=== PATIENT | male | born 1985 | race Caucasian/White ===

== ENCOUNTER 2016-12-27 02:54 | Emergency (ER) | payer SELFPAY ==
[~2016-12-27] VITALS: Ht 185.4 cm; Wt 85.0 kg
[~2016-12-27 02:54] MED LIST: MOME17I EACH NARE
[2016-12-27] MEDS ORDERED: TEGR200T PO (02:56)
[2016-12-27 02:57] VITALS: BP 136/60; PULSE 88; RESP 20; TEMP 98; O2SAT 98
[2016-12-27] MEDS ORDERED: KETOROLAC TROMETHAMINE 30 MG/ML (IVP) VIAL IV PUSH ONE (03:15)
--- NOTE | 2016-12-27 03:24 | PD ---
HPI Chief Complaint: Seizure Time Seen by Provider: 02:57 Travel History International Travel<30 days: No Contact w/Intl Traveler<30days: No Traveled to known affect area: No History of Present Illness HPI 31-year-old male was brought in the EMS for seizure. Patient was reported had 3 seizure episodes at home this evening. Patient also complained of sharp pain on the left anterior chest wall this evening also. Patient states that the pain is sharp stabbing pain and worse with deep breathing. Patient states that the pain localized to left into chest wall area. Patient denies any pain radiation. Patient also complained of low back pain. Patient has history chronic low back pain. Patient states that he has history of seizure and was seen by physician outside of the area. Patient states that he was on Tegretol . Patient denies any recent alcohol or drug abuse. Patient has history of panic attack and was on Xanax in the past. In reviewing medical record patient was on gabapentin, Percocet, Keppra, Prilosec and Xanax. Patient states that he has not been taking Tegretol recently. PFSH Past Medical History Anxiety: Yes Immunizations Current: Yes Seizures: Yes Tetanus Vaccination: Unknown Influenza Vaccination: No Social History Alcohol Use: No Tobacco Use: Yes (ORAL TOBACCO) Substance Use: Yes (xanax, weed) Allergies-Medications (Allergen,Severity, Reaction): Coded Allergies: Hydrocodone (Verified Allergy, Unknown, 12/27/16) Reported Meds & Prescriptions Reported Meds & Active Scripts Active Reported Tegretol (Carbamazepine) 200 Mg Tab 200 Mg PO BID Review of Systems General / Constitutional: No: Fever Eyes: No: Visual changes HENT: No: Headaches Cardiovascular: Positive: Chest Pain or Discomfort Respiratory: No: Shortness of Breath Gastrointestinal: No: Abdominal Pain Genitourinary: No: Dysuria Musculoskeletal: No: Pain Skin: No Rash Neurologic: No: Weakness Psychiatric: No: Depression Endocrine: No: Polydipsia Hematologic/Lymphatic: No: Easy Bruising Physical Exam Narrative GENERAL: Well-nourished, well-developed patient. SKIN: Warm and dry. HEAD: Normocephalic. EYES: No scleral icterus. No injection or drainage. NECK: Supple, trachea midline. No JVD or lymphadenopathy. CARDIOVASCULAR: Regular rate and rhythm without murmurs, gallops, or rubs. RESPIRATORY: Breath sounds equal bilaterally. No accessory muscle use. GASTROINTESTINAL: Abdomen soft, non-tender, nondistended. MUSCULOSKELETAL: No cyanosis, or edema. BACK: Nontender without obvious deformity. No CVA tenderness. Neurologic exam normal. Data Data Last Documented VS Vital Signs Date Time Temp Pulse Resp B/P Pulse Ox O2 Delivery O2 Flow Rate FiO2 12/27/16 04:00 84 18 123/59 98 Room Air 12/27/16 02:57 98.0 Orders Electrocardiogram (12/27/16 03:10) Complete Blood Count With Diff (12/27/16 03:10) Comprehensive Metabolic Panel (12/27/16 03:10) Creatine Kinase (Cpk) (12/27/16 03:10) Troponin I (12/27/16 03:10) Carbamazepine (Tegretol) (12/27/16 03:10) Iv Access Insert/Monitor (12/27/16 03:10) Ecg Monitoring (12/27/16 03:10) Oximetry (12/27/16 03:10) Drug Screen, Random Urine (12/27/16 03:10) Ketorolac Inj (Toradol Inj) (12/27/16 03:15) Labs Laboratory Tests Test 12/27/16 03:20 White Blood Count 9.8 TH/MM3 Red Blood Count 4.44 MIL/MM3 Hemoglobin 14.0 GM/DL Hematocrit 41.1 % Mean Corpuscular Volume 92.5 FL Mean Corpuscular Hemoglobin 31.6 PG Mean Corpuscular Hemoglobin 34.2 % Concent Red Cell Distribution Width 13.0 % Platelet Count 247 TH/MM3 Mean Platelet Volume 8.5 FL Neutrophils (%) (Auto) 63.5 % Lymphocytes (%) (Auto) 24.2 % Monocytes (%) (Auto) 6.7 % Eosinophils (%) (Auto) 5.1 % Basophils (%) (Auto) 0.5 % Neutrophils # (Auto) 6.2 TH/MM3 Lymphocytes # (Auto) 2.4 TH/MM3 Monocytes # (Auto) 0.7 TH/MM3 Eosinophils # (Auto) 0.5 TH/MM3 Basophils # (Auto) 0.1 TH/MM3 CBC Comment DIFF FINAL Differential Comment Sodium Level 142 MEQ/L Potassium Level 3.7 MEQ/L Chloride Level 106 MEQ/L Carbon Dioxide Level 28.1 MEQ/L Anion Gap 8 MEQ/L Blood Urea Nitrogen 14 MG/DL Creatinine 0.92 MG/DL Estimat Glomerular Filtration 95 ML/MIN Rate Random Glucose 101 MG/DL Calcium Level 9.0 MG/DL Total Bilirubin 0.2 MG/DL Aspartate Amino Transf 35 U/L (AST/SGOT) Alanine Aminotransferase 75 U/L (ALT/SGPT) Alkaline Phosphatase 101 U/L Total Creatine Kinase 100 U/L Troponin I LESS THAN 0.02 NG/ML Total Protein 7.3 GM/DL Albumin 3.6 GM/DL Carbamazepine (Tegretol) Level LESS THAN 0.5 MCG/ML MDM Medical Decision Making Medical Screen Exam Complete: Yes Emergency Medical Condition: Yes Interpretation(s) 4 43 AM. CBC within normal limit. CMP within normal limit. Cardiac enzymes are normal., Carbamazepine level less than 0.5. Differential Diagnosis Differential diagnosis including seizure versus pseudoseizure, drug withdrawal, electrolyte imbalance, substance abuse, chest wall pain, angina, MD, PE, pneumothorax. Narrative Course 31-year-old male was brought in by EMS for possible seizures at home. Patient states that he has history of seizure and has not been taking Tegretol. In reviewing medical record patient was on Xanax, Percocet, gabapentin, Keppra and Prozac. Patient was given Toradol 30 mg IV today. Diagnosis Primary Impression: Seizure Additional Impression: Atypical chest pain Patient Instructions: General Instructions Additional Instructions: Advised patient to follow up with local physician for status seizure history. Advil Tylenol for pain. Follow-up with personal physician. Return if worse. Med/Other Pt SpecificInfo: No Change to Meds Disposition: 01 DISCHARGE HOME Condition: Stable Prince Trotter MD Dec 27, 2016 03:24 Prince Trotter MD Dec 27, 2016 03:24
[2016-12-27 03:40] LABS: AUTOMATED NEUTROPHIL # 6.2 TH/MM3 (1.8-7.7); BASOPHIL # 0.1 TH/MM3 (0-0.2); BASOPHIL % 0.5 % (0.0-2.0); EOSINOPHIL # 0.5 TH/MM3 (0-0.4); EOSINOPHIL % 5.1 % (0.0-4.0); HEMATOCRIT 41.1 % (39.0-51.0); HEMO FLAGS DIFF FINAL; LYMPH % 24.2 % (9.0-44.0); LYMPHOCYTE # 2.4 TH/MM3 (1.0-4.8); MEAN CELL VOLUME 92.5 FL (80.0-100.0); MEAN CORPUSCULAR HEMOGLOBIN 31.6 PG (27.0-34.0); MEAN CORPUSCULAR HGB CONC 34.2 % (32.0-36.0); MONO % 6.7 % (0.0-8.0); NEUT % 63.5 % (16.0-70.0); PLATELET COUNT 247 TH/MM3 (150-450); RED BLOOD COUNT 4.44 MIL/MM3 (4.50-5.90); WHITE BLOOD COUNT 9.8 TH/MM3 (4.0-11.0)
[2016-12-27 03:52] LABS: ALKALINE PHOSPHATASE 101 U/L (45-117); TOTAL BILIRUBIN ADULT 0.2 MG/DL (0.2-1.0)
[2016-12-27 04:00] VITALS: BP 123/59; PULSE 84; RESP 18; O2SAT 98
[2016-12-27 04:07] LABS: CREATINE KINASE 100 U/L (39-308)
[2016-12-27 04:08] LABS: ALT (GPT) 75 U/L (12-78); ANION GAP 8 MEQ/L (5-15); AST (GOT) 35 U/L (15-37); BICARBONATE 28.1 MEQ/L (21.0-32.0); BLOOD UREA NITROGEN 14 MG/DL (7-18); CHLORIDE 106 MEQ/L (98-107); GLOMERULAR FILTRATION RATE 95 ML/MIN (>89); POTASSIUM 3.7 MEQ/L (3.5-5.1); SODIUM (NA) 142 MEQ/L (136-145)
--- NOTE | 2016-12-28 11:04 | EKG ---
Date Performed: 12/27/2016 Time Performed: 03:26:48 PTAGE: 31 years EKG: Sinus rhythm NONSPECIFIC T-WAVE ABNORMALITY BORDERLINE ECG NO PREVIOUS TRACING DOCTOR: Imelda Vale Interpretating Date/Time 12/28/2016 11:02:32
== END 2016-12-27 04:53 | disposition home or self-care (01) ==
LOC: NEPE 02:54
DX: R56.9 Unspecified convulsions (principal); R07.89 Other chest pain
CPT/HCPCS: 80053; 80156; 82550; 84484; 85025; 93005; 96374; 99284; J1885

== ENCOUNTER 2017-02-18 05:25 | Emergency (ER) | payer SELFPAY ==
[~2017-02-18] VITALS: Ht 185.4 cm; Wt 100.0 kg
[~2017-02-18 05:25] MED LIST changes: -MOME17I EACH NARE; +TEGR200T PO
[2017-02-18] MEDS ORDERED: ALPR.5 PO (05:38)
[2017-02-18] MEDS ORDERED: OXYC30TA PO (05:38)
[2017-02-18 05:39] VITALS: BP 154/85; PULSE 79; RESP 18; TEMP 98.4; O2SAT 98
[2017-02-18 06:35] LABS: AUTOMATED NEUTROPHIL # 3.9 TH/MM3 (1.8-7.7); BASOPHIL % 0.5 % (0.0-2.0); EOSINOPHIL # 0.2 TH/MM3 (0-0.4); EOSINOPHIL % 2.4 % (0.0-4.0); HEMATOCRIT 40.3 % (39.0-51.0); HEMO FLAGS DIFF FINAL; LYMPHOCYTE # 1.7 TH/MM3 (1.0-4.8); MEAN CELL VOLUME 89.7 FL (80.0-100.0); MEAN CORPUSCULAR HEMOGLOBIN 31.3 PG (27.0-34.0); MEAN CORPUSCULAR HGB CONC 34.9 % (32.0-36.0); MONO % 8.2 % (0.0-8.0); NEUT % 61.9 % (16.0-70.0); PLATELET COUNT 238 TH/MM3 (150-450); RED BLOOD COUNT 4.49 MIL/MM3 (4.50-5.90); RED CELL DISTRIBUTION WIDTH 13.2 % (11.6-17.2); WHITE BLOOD COUNT 6.3 TH/MM3 (4.0-11.0)
--- NOTE | 2017-02-18 06:47 | RADRPT ---
EXAM DATE/TIME: 02/18/2017 06:19 [facility] COMPARISON: No previous studies available for comparison. INDICATIONS : Fall after having seizure. RADIATION DOSE: 36.50 CTDIvol (mGy) MEDICAL HISTORY : Seizures. SURGICAL HISTORY : None. ENCOUNTER: Initial ACUITY: 1 day PAIN SCALE: 3/10 LOCATION: cranial TECHNIQUE: Multiple contiguous axial images were obtained of the head. Using automated exposure control and adj ustment of the mA and/or kV according to patient size, radiation dose was kept as low as reasonably a chievable to obtain optimal diagnostic quality images. FINDINGS: There is mild motion artifact degrading the images. CEREBRUM: The ventricles are normal for age. No evidence of midline shift, mass lesion, hemorrhage or acute in farction. No extra-axial fluid collections are seen. POSTERIOR FOSSA: The cerebellum and brainstem are intact. The 4th ventricle is midline. The cerebellopontine angle i s unremarkable. EXTRACRANIAL: The visualized portion of the orbits is intact. SKULL: The calvaria is intact. No evidence of skull fracture. CONCLUSION: Negative trauma with noncontrast CT. Rodriguez Mcconnell MD on February 18, 2017 at 6:44 Board Certified Radiologist. This report was verified electronically.
[2017-02-18 06:51] LABS: ALKALINE PHOSPHATASE 105 U/L (45-117); ALT (GPT) 73 U/L (12-78); TOTAL BILIRUBIN ADULT 0.9 MG/DL (0.2-1.0)
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
[2017-02-18] MEDS ORDERED: LORazepam 1 MG TAB PO PRN (07:00)
[2017-02-18] MEDS ORDERED: LORazepam 2 MG/ML VIAL IV PUSH PRN ×4 (07:00)
[2017-02-18] MEDS ORDERED: FLUMAZENIL 0.5 MG/5 ML VIAL IV PUSH PRN (07:00)
[2017-02-18] MEDS ORDERED: ONDANSETRON HCL 4 MG/2 ML VIAL IV PUSH PRN (07:00)
[2017-02-18 07:02] LABS: ANION GAP 11 MEQ/L (5-15); AST (GOT) 54 U/L (15-37); BICARBONATE 24.3 MEQ/L (21.0-32.0); BLOOD UREA NITROGEN 8 MG/DL (7-18); CHLORIDE 106 MEQ/L (98-107); GLOMERULAR FILTRATION RATE 81 ML/MIN (>89); SODIUM (NA) 141 MEQ/L (136-145)
[2017-02-18] MEDS: LORazepam 2 MG TAB PO PRN (07:02)
--- NOTE | 2017-02-18 07:03 | PD ---
Physical Exam Date Seen by Provider: February 18, 2017 Time Seen by Provider: 07:02 Narrative The patient is a 31-year-old male who is originally seen by the previous physician, Dr. Alejo. Please refer to initial history, physical, diagnostic evaluation, treatment modality plan. The patient is a John act, patient was signed out with CT of the brain and cervical spine as well as laboratory evaluation pending. Data Data Last Documented VS Vital Signs Date Time Temp Pulse Resp B/P Pulse Ox O2 Delivery O2 Flow Rate FiO2 02/18/17 05:39 98.4 79 18 154/85 98 Orders Complete Blood Count With Diff (02/18/17 05:58) Comprehensive Metabolic Panel (02/18/17 05:58) Thyroid Stimulating Hormone (02/18/17 05:58) Urinalysis - C+S If Indicated (02/18/17 05:58) Iv Access Insert/Monitor (02/18/17 05:58) Ecg Monitoring (02/18/17 05:58) Valproic Acid (Depakene) (02/18/17 05:58) Psych Screen (02/18/17 05:58) Drug Screen, Random Urine (02/18/17 05:58) Alcohol (Ethanol) (02/18/17 05:58) Salicylates (Aspirin) (02/18/17 05:58) Tylenol (Acetaminophen) (02/18/17 05:58) Ct Brain W/O Iv Contrast(Rout) (02/18/17 ) Ct Cerv Spine W/O Contrast (02/18/17 ) Alcohol Withdrawal Asmt-Ciwa ONCE (02/18/17 06:51) Ondansetron Inj (Zofran Inj) (02/18/17 07:00) Flumazenil Inj (Romazicon Inj) (02/18/17 07:00) Lorazepam (Ativan) (02/18/17 07:00) Lorazepam Inj (Ativan Inj) (02/18/17 07:00) Lorazepam (Ativan) (02/18/17 07:00) Lorazepam Inj (Ativan Inj) (02/18/17 07:00) Lorazepam Inj (Ativan Inj) (02/18/17 07:00) Lorazepam Inj (Ativan Inj) (02/18/17 07:00) Lorazepam Inj (Ativan Inj) (02/18/17 07:15) Labs Laboratory Tests Test 02/18/17 06:00 White Blood Count 6.3 TH/MM3 Red Blood Count 4.49 MIL/MM3 Hemoglobin 14.1 GM/DL Hematocrit 40.3 % Mean Corpuscular Volume 89.7 FL Mean Corpuscular Hemoglobin 31.3 PG Mean Corpuscular Hemoglobin 34.9 % Concent Red Cell Distribution Width 13.2 % Platelet Count 238 TH/MM3 Mean Platelet Volume 8.7 FL Neutrophils (%) (Auto) 61.9 % Lymphocytes (%) (Auto) 27.0 % Monocytes (%) (Auto) 8.2 % Eosinophils (%) (Auto) 2.4 % Basophils (%) (Auto) 0.5 % Neutrophils # (Auto) 3.9 TH/MM3 Lymphocytes # (Auto) 1.7 TH/MM3 Monocytes # (Auto) 0.5 TH/MM3 Eosinophils # (Auto) 0.2 TH/MM3 Basophils # (Auto) 0.0 TH/MM3 CBC Comment DIFF FINAL Differential Comment Sodium Level 141 MEQ/L Potassium Level 3.8 MEQ/L Chloride Level 106 MEQ/L Carbon Dioxide Level 24.3 MEQ/L Anion Gap 11 MEQ/L Blood Urea Nitrogen 8 MG/DL Creatinine 1.05 MG/DL Estimat Glomerular Filtration 81 ML/MIN Rate Random Glucose 94 MG/DL Calcium Level 10.0 MG/DL Total Bilirubin 0.9 MG/DL Aspartate Amino Transf 54 U/L (AST/SGOT) Alanine Aminotransferase 73 U/L (ALT/SGPT) Alkaline Phosphatase 105 U/L Total Protein 8.8 GM/DL Albumin 4.4 GM/DL Thyroid Stimulating Hormone 1.210 uIU/ML 3rd Gen Salicylates Level 3.5 MG/DL Acetaminophen Level LESS THAN 2.0 MCG/ML Valproic Acid (Depakene) Level LESS THAN 3 MCG/ML Ethyl Alcohol Level LESS THAN 3 MG/DL [facility] Medical Record Reviewed: Yes Supervised Visit with DVEON: No Interpretation(s) Laboratory Tests Test 02/18/17 06:00 White Blood Count 6.3 TH/MM3 Red Blood Count 4.49 MIL/MM3 Hemoglobin 14.1 GM/DL Hematocrit 40.3 % Mean Corpuscular Volume 89.7 FL Mean Corpuscular Hemoglobin 31.3 PG Mean Corpuscular Hemoglobin 34.9 % Concent Red Cell Distribution Width 13.2 % Platelet Count 238 TH/MM3 Mean Platelet Volume 8.7 FL Neutrophils (%) (Auto) 61.9 % Lymphocytes (%) (Auto) 27.0 % Monocytes (%) (Auto) 8.2 % Eosinophils (%) (Auto) 2.4 % Basophils (%) (Auto) 0.5 % Neutrophils # (Auto) 3.9 TH/MM3 Lymphocytes # (Auto) 1.7 TH/MM3 Monocytes # (Auto) 0.5 TH/MM3 Eosinophils # (Auto) 0.2 TH/MM3 Basophils # (Auto) 0.0 TH/MM3 CBC Comment DIFF FINAL Differential Comment Sodium Level 141 MEQ/L Potassium Level 3.8 MEQ/L Chloride Level 106 MEQ/L Carbon Dioxide Level 24.3 MEQ/L Anion Gap 11 MEQ/L Blood Urea Nitrogen 8 MG/DL Creatinine 1.05 MG/DL Estimat Glomerular Filtration 81 ML/MIN Rate Random Glucose 94 MG/DL Calcium Level 10.0 MG/DL Total Bilirubin 0.9 MG/DL Aspartate Amino Transf 54 U/L (AST/SGOT) Alanine Aminotransferase 73 U/L (ALT/SGPT) Alkaline Phosphatase 105 U/L Total Protein 8.8 GM/DL Albumin 4.4 GM/DL Thyroid Stimulating Hormone 1.210 uIU/ML 3rd Gen Salicylates Level 3.5 MG/DL Acetaminophen Level LESS THAN 2.0 MCG/ML Valproic Acid (Depakene) Level LESS THAN 3 MCG/ML Ethyl Alcohol Level LESS THAN 3 MG/DL Last Impressions Head CT 02/18/17 0000 Signed Impressions: Service Date/Time: Saturday, February 18, 2017 06:19 - CONCLUSION: Negative trauma with noncontrast CT. Rodriguez Mcconnell MD CT of the cervical spine reveals no fracture or subluxation Differential Diagnosis Differential diagnosis includes seizure, noncompliance, breakthrough seizure, postictal state, hyponatremia, hypocalcemia, benzodiazepine abuse, John act. Narrative Course The patient was initially evaluated by the previous physician, Dr. Alejo, please refer to the initial history, physical, diagnostic evaluation, and treatment modality plan. The patient was signed out at [address] of the brain and cervical spine pending as well as laboratory evaluation pending. If CTs and labs are unremarkable, patient will be medically cleared to be evaluated by psychiatry. CT of the brain and cervical spine are unremarkable. Laboratory evaluation was unremarkable. Patient is medically cleared to be evaluated by psychiatry. Condition: Stable Francisco Law MD February 18, 2017 07:03
[2017-02-18 07:04] LABS: ACETAMINOPHEN LESS THAN 2.0 MCG/ML (10.0-30.0); POTASSIUM 3.8 MEQ/L (3.5-5.1)
[2017-02-18] MEDS ORDERED: LORazepam 2 MG/ML VIAL IV PUSH ONE (07:15)
--- NOTE | 2017-02-18 07:42 | RADRPT ---
EXAM DATE/TIME: 02/18/2017 06:19 [facility] COMPARISON: No previous studies available for comparison. INDICATIONS : Fall after having seizure. RADIATION DOSE: 23.67 CTDIvol (mGy) MEDICAL HISTORY : Seizures. SURGICAL HISTORY : None. ENCOUNTER: Initial ACUITY: 1 day PAIN SCALE: 2/10 LOCATION: neck TECHNIQUE: Volumetric scanning of the cervical spine was performed. Multiplanar reconstructions in the sagittal, coronal and oblique axial planes were performed. Using automated exposure control and adjustment o f the mA and/or kV according to patient size, radiation dose was kept as low as reasonably achievable to obtain optimal diagnostic quality images. FINDINGS: VERTEBRAE: Normal vertebral body height. Mild degenerative changes at C5-6. ALIGNMENT: No evidence of subluxation. C2-C3: The bony spinal canal is normal in size. No evidence of disc bulge or herniation. The neural forami na are bilaterally patent. C3-C4: The bony spinal canal is normal in size. No evidence of disc bulge or herniation. The neural forami na are bilaterally patent. C4-C5: The bony spinal canal is normal in size. No evidence of disc bulge or herniation. The neural forami na are bilaterally patent. C5-C6: The bony spinal canal is normal in size. No evidence of disc bulge or herniation. The neural forami na are bilaterally patent. C6-C7: The bony spinal canal is normal in size. No evidence of disc bulge or herniation. The neural forami na are bilaterally patent. C7-T1: The bony spinal canal is normal in size. No evidence of disc bulge or herniation. The neural forami na are bilaterally patent. CONCLUSION: No fracture or subluxation. Ryan Estrada MD on February 18, 2017 at 7:39 Board Certified Radiologist. This report was verified electronically.
[2017-02-18 09:18] VITALS: BP 135/70; PULSE 69; RESP 20; O2SAT 100
[2017-02-18 09:25] LABS: BLOOD, URINE MOD (NEG); COMMENT (UR) CULT NOT INDICATED; CULTURE IF INDICATED CULT NOT INDICATED; GLUCOSE,URINE NEG (NEG); HYALINE CAST, URINE 18 /lpf (RARE); KETONE, URINE 40 mg/dL (NEG); MUCUS URINE MANY /lpf (OCC); NITRITE,URINE NEG (NEG); SQUAMOUS EPITHELIAL CELL URINE <1 /hpf (0-5); URINE COLOR YELLOW (YELLW/STRAW)
[2017-02-18 09:30] LABS: AMPHETAMINE, URINE POS (NEG); BARBITURATES, URINE NEG (NEG); COCAINE, URINE POS (NEG)
[2017-02-18] MEDS ORDERED: diphenhydrAMINE HCL 50 MG/ML VIAL IM ONE (10:30)
[2017-02-18] MEDS ORDERED: HALOPERIDOL LACTATE 5 MG/ML AMP IM ONE (10:30)
[2017-02-18 11:00] VITALS: BP 141/66; PULSE 91; RESP 18; TEMP 97.3; O2SAT 97
[2017-02-18 18:25] VITALS: BP 112/66; PULSE 88; RESP 18; TEMP 97.2; O2SAT 97
[2017-02-18 22:25] VITALS: BP 100/59; PULSE 74; RESP 18; O2SAT 99
[2017-02-19] MEDS: LORazepam 2 MG TAB PO PRN (01:43)
[2017-02-19 01:55] VITALS: BP 120/77; PULSE 103; RESP 18; O2SAT 98
[2017-02-19 06:27] VITALS: BP 109/56; PULSE 52; RESP 17; O2SAT 99
[2017-02-19 10:44] VITALS: BP 109/59; PULSE 89; RESP 16; TEMP 98.6; O2SAT 100
--- NOTE | 2017-02-19 12:19 | PD.CONS ---
Provisional Diagnosis Admission Date 02/18/17 Sayre I. 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 Patient seen screened in the ED urine toxicology positive for amphetamines cocaine benzodiazepines and marijuana. At the present time patient sitting quietly in his room on J pod nurse Edelmira present throughout session. Patient is alert oriented calm cooperative minimizing his drug use though it appears she has had subsequent abuse problem going back at least 10 years when he was a student at [employer]. He did see a psychiatrist at that time. Though he denies psychiatric hospitalization for psychotropic medications. He denies suicidality homicidality voices or visions. He states he lives with a girlfriend who is with his child. At this time patient does not meet criteria for involuntary psychiatric hospitalization of the John act. Thus I will lift John act it is okay by psych for discharge when medically clear and stable. No Rx by me. Strong recommendation voluntary outpatient [facility] outpatient substance abuse assessment. Also strong recommendation and a, also strong recommendation participation in [facility] outpatient support groups Review of Systems Constitutional: DENIES: Diaphoretic episodes, Fatigue, Fever, Weight gain, Weight loss, Chills, Dizziness, Change in appetite, Night Sweats Endocrine: DENIES: Heat/cold intolerance, Polydipsia, Polyuria, Polyphagia Eyes: DENIES: Blurred vision, Diplopia, Eye inflammation, Eye pain, Vision loss , Photosensitivity, Double Vision Ears, nose, mouth, throat: DENIES: Tinnitus, Hearing loss, Vertigo, Nasal discharge, Oral lesions, Throat pain, Hoarseness, Ear Pain, Running Nose, Epistaxis, Sinus Pain, Toothache, Odynophagia Respiratory: DENIES: Apneas, Cough, Snoring, Wheezing, Hemoptysis, Sputum production, Shortness of breath Cardiovascular: DENIES: Chest pain, Palpitations, Syncope, Dyspnea on Exertion , PND, Lower Extremity Edema, Orthopnea, Claudication Gastrointestinal: DENIES: Abdominal pain, Black stools, Bloody stools, Constipation, Diarrhea, Nausea, Vomiting, Difficulty Swallowing, Anorexia Genitourinary: DENIES: Sexual dysfunction, Urinary frequency, Urinary incontinence, Urgency, Hematuria, Dysuria, Nocturia, Penile Discharge, Testicular Pain, Testicular Swelling Musculoskeletal: DENIES: Joint pain, Muscle aches, Stiffness, Joint Swelling, Back pain, Neck pain Integumentary: DENIES: Abnormal pigmentation, Nail changes, Pruritus, Rash Hematologic/lymphatic: DENIES: Bruising, Lymphadenopathy Immunologic/allergic: DENIES: Eczema, Urticaria Neurologic: DENIES: Abnormal gait, Headache, Localized weakness, Paresthesias, Seizures, Speech Problems, Tremor, Poor Balance Psychiatric: DENIES: Anxiety, Confusion, Mood changes, Depression, Hallucinations, Agitation, Suicidal Ideation, Homicidal Ideation, Delusions Past Family Social History Coded Allergies: Hydrocodone (Verified Allergy, Unknown, 02/18/17) Past Medical History Patient medically cleared ED Reported Medications Oxycodone 30 Mg Tab30 Mg PO Q6H PRN (PAIN) Ref 0 02/18/17 Alprazolam (Xanax)0.5 Mg Tab0.5 Mg PO Q4H PRN (ANXIETY) Ref 0 02/18/17 Carbamazepine (Tegretol)200 Mg Dbh320 Mg PO BID #60 TAB Ref 0 12/27/16 Current Medications Medications (Trade) Dose Ordered Sig/Marly Route Start Time Stop Time Status Last Admin (Zofran Inj) 4 mg Q8H PRN IV PUSH 02/18/17 07:00 (Romazicon Inj) 0.2 mg Q1M PRN IV PUSH 02/18/17 07:00 (Ativan) 1 mg Q4H PRN PO 02/18/17 07:00 (Ativan Inj) 1 mg Q4H PRN IV PUSH 02/18/17 07:00 (Ativan) 2 mg Q2H PRN PO 02/18/17 07:00 02/19/17 01:43 (Ativan Inj) 2 mg Q2H PRN IV PUSH 02/18/17 07:00 (Ativan Inj) 2 mg Q1H PRN IV PUSH 02/18/17 07:00 (Ativan Inj) 2 mg Q15M PRN IV PUSH 02/18/17 07:00 Family History Patient denies physical or sexual abuse in family Social History Patient lives with girlfriend who is with his female child Patient's Strengths (min. 2) Patient verbal intelligence cooperative Physical Exam Patient seen screened in ED medically cleared Vital Signs Vital Signs Date Time Temp Pulse Resp B/P Pulse Ox O2 Delivery O2 Flow Rate FiO2 02/19/17 10:44 98.6 89 16 109/59 100 Room Air Mental Status Examination Alert oriented white male appears somewhat younger than stated age clean and neat cooperative with good eye contact Appearance Clean and neat Speech: Unremarkable Memory: Unremarkable Thought Process: Logical Thought Content: Unremarkable, Other (showing marked minimization of multiple drug abuse history) Language Fair Fund of Knowledge Good Hallucination Type: None Attention and Concentration: Other (fair) Suicidal Ideation: Yes (patient made vague suicidal statements) Previous Suicide Attempts: No Homicidal Ideation: No Previous Homicide Attempts: No Insight: Poor Judgment: Poor Affect: Other (slight decrease range and intensity) Mood: Euthymic (to mildly dysphoric) Motor Activity: Normal gait Assessment & Plan Problem List: (1) Polysubstance abuse ICD Code: F19.10 (2) Adjustment disorder with mixed disturbance of emotions and conduct ICD Code: F43.25 Assessment & Plan Estimated LOS: days patient does not meet John criteria will lift John act. Is okay by psych for discharge medically clear and stable, no Rx by me, strong referral to NA, strong referral to [facility] outpatient voluntary substance abuse assessment. Strongly referral [facility] outpatient support groups Discharge Planning See above Request HC Surrog/Guard Advoc?: No Tino Marcial MD February 19, 2017 11:42
== END 2017-02-19 11:40 | disposition home or self-care (01) ==
LOC: NEPE 05:25 → NEPJ 02-19 11:40
DX: R45.1 Restlessness and agitation (principal); F43.25 Adjustment disorder with mixed disturbance of emotions and conduct; F19.10 Other psychoactive substance abuse, uncomplicated; F41.9 Anxiety disorder, unspecified; Z91.14 Patient's other noncompliance with medication regimen; Z72.0 Tobacco use
CPT/HCPCS: 70450; 72125; 80053; 80164; 80307; 81001; 84443; 85025; 96372; 99284; J1200; J1630; J2060

== ENCOUNTER 2017-10-24 21:54 | Emergency (ER) | payer SELFPAY ==
[~2017-10-24 21:54] MED LIST changes: +ALPR.5 PO; +OXYC30TA PO
[2017-10-24 22:00] VITALS: BP 136/83; PULSE 86; RESP 16; TEMP 98.8; O2SAT 96
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
[2017-10-25 01:11] VITALS: BP 115/62; PULSE 75; RESP 17; O2SAT 99
[2017-10-25 01:14] LABS: BASOPHIL % 0.8 % (0.0-2.0); EOSINOPHIL # 0.2 TH/MM3 (0-0.4); EOSINOPHIL % 3.6 % (0.0-4.0); HEMATOCRIT 37.3 % (39.0-51.0); LYMPH % 38.7 % (9.0-44.0); LYMPHOCYTE # 2.3 TH/MM3 (1.0-4.8); MEAN CELL VOLUME 94.4 FL (80.0-100.0); MEAN CORPUSCULAR HEMOGLOBIN 32.8 PG (27.0-34.0); MEAN CORPUSCULAR HGB CONC 34.7 % (32.0-36.0); MEAN PLATELET VOLUME 8.2 FL (7.0-11.0); MONO % 6.3 % (0.0-8.0); MONOCYTE # 0.4 TH/MM3 (0-0.9); NEUT % 50.6 % (16.0-70.0); PLATELET COUNT 229 TH/MM3 (150-450); RED BLOOD COUNT 3.95 MIL/MM3 (4.50-5.90); RED CELL DISTRIBUTION WIDTH 12.9 % (11.6-17.2)
[2017-10-25 01:34] LABS: ALBUMIN 3.8 GM/DL (3.4-5.0); ALT (GPT) 24 U/L (12-78); AST (GOT) 18 U/L (15-37); BICARBONATE 31.2 MEQ/L (21.0-32.0); BLOOD UREA NITROGEN 10 MG/DL (7-18); CALCIUM 9.2 MG/DL (8.5-10.1); CHLORIDE 104 MEQ/L (98-107); CREATININE 0.71 MG/DL (0.60-1.30); GLOMERULAR FILTRATION RATE 127 ML/MIN (>89); GLUCOSE,RANDOM 84 MG/DL (74-106); SODIUM (NA) 141 MEQ/L (136-145)
[2017-10-25 01:36] LABS: ACETAMINOPHEN LESS THAN 2.0 MCG/ML (10.0-30.0); ALKALINE PHOSPHATASE 109 U/L (45-117); TOTAL BILIRUBIN ADULT 0.2 MG/DL (0.2-1.0); TOTAL PROTEIN 7.6 GM/DL (6.4-8.2)
[2017-10-25 06:34] VITALS: BP 117/66; PULSE 81; RESP 17; O2SAT 96
[2017-10-25 10:55] VITALS: BP 132/69; PULSE 77; RESP 16; TEMP 98.7; O2SAT 97
--- NOTE | 2017-10-25 13:45 | PD ---
Physical Exam Date Seen by Provider: Oct 25, 2017 Time Seen by Provider: 13:44 Narrative 32-year-old male previously medically cleared for psychiatric evaluation. Seen by psychiatric services and felt stable for psychiatric discharge with follow- up with [facility]. The patient remains medically stable at this time. Data Data Last Documented VS Vital Signs Date Time Temp Pulse Resp B/P (MAP) Pulse Ox O2 Delivery O2 Flow Rate FiO2 10/25/17 10:55 98.7 77 16 132/69 (90) 97 Room Air Orders Orders Complete Blood Count With Diff (10/24/17 23:24) Comprehensive Metabolic Panel (10/24/17 23:24) Psych Screen (10/24/17 23:24) Drug Screen, Random Urine (10/24/17 23:24) Alcohol (Ethanol) (10/24/17 23:24) Salicylates (Aspirin) (10/24/17 23:24) Tylenol (Acetaminophen) (10/24/17 23:24) Diet Regular Basic (10/25/17 Breakfast) Diet Regular Basic (10/25/17 Lunch) Labs Laboratory Tests Test 10/24/17 23:40 10/25/17 00:57 Urine Opiates Screen NEG Urine Barbiturates Screen NEG Urine Amphetamines Screen NEG Urine Benzodiazepines Screen POS Urine Cocaine Screen NEG Urine Cannabinoids Screen POS White Blood Count 6.0 TH/MM3 Red Blood Count 3.95 MIL/MM3 Hemoglobin 13.0 GM/DL Hematocrit 37.3 % Mean Corpuscular Volume 94.4 FL Mean Corpuscular Hemoglobin 32.8 PG Mean Corpuscular Hemoglobin Concent 34.7 % Red Cell Distribution Width 12.9 % Platelet Count 229 TH/MM3 Mean Platelet Volume 8.2 FL Neutrophils (%) (Auto) 50.6 % Lymphocytes (%) (Auto) 38.7 % Monocytes (%) (Auto) 6.3 % Eosinophils (%) (Auto) 3.6 % Basophils (%) (Auto) 0.8 % Neutrophils # (Auto) 3.0 TH/MM3 Lymphocytes # (Auto) 2.3 TH/MM3 Monocytes # (Auto) 0.4 TH/MM3 Eosinophils # (Auto) 0.2 TH/MM3 Basophils # (Auto) 0.0 TH/MM3 CBC Comment DIFF FINAL Differential Comment Blood Urea Nitrogen 10 MG/DL Creatinine 0.71 MG/DL Random Glucose 84 MG/DL Total Protein 7.6 GM/DL Albumin 3.8 GM/DL Calcium Level 9.2 MG/DL Alkaline Phosphatase 109 U/L Aspartate Amino Transf (AST/SGOT) 18 U/L Alanine Aminotransferase (ALT/SGPT) 24 U/L Total Bilirubin 0.2 MG/DL Sodium Level 141 MEQ/L Potassium Level 4.3 MEQ/L Chloride Level 104 MEQ/L Carbon Dioxide Level 31.2 MEQ/L Anion Gap 6 MEQ/L Estimat Glomerular Filtration Rate 127 ML/MIN Salicylates Level 1.9 MG/DL Acetaminophen Level LESS THAN 2.0 MCG/ML Ethyl Alcohol Level LESS THAN 3 MG/DL MDM Medical Record Reviewed: Yes Supervised Visit with DEVON: Yes Narrative Course 32-year-old male previously medically cleared for psychiatric evaluation. Seen by psychiatric services and felt stable for psychiatric discharge with follow- up with [facility]. The patient remains medically stable at this time. Diagnosis Primary Impression: Medical clearance for psychiatric admission Additional Impression: Substance abuse Referrals: [facility] Patient Instructions: General Instructions Disposition: 01 DISCHARGE HOME Condition: Stable Dez Prakash Oct 25, 2017 13:45
== END 2017-10-25 14:35 | disposition home or self-care (01) ==
LOC: NEPD 21:54 → NEPJ 10-25 14:35
DX: Z02.89 Encounter for other administrative examinations (principal); F19.10 Other psychoactive substance abuse, uncomplicated; F41.9 Anxiety disorder, unspecified; G40.909 Epilepsy, unspecified, not intractable, without status epilepticus; Z72.0 Tobacco use
CPT/HCPCS: 80053; 80307; 85025; 99283